=== PATIENT | female | born 1985 | race Caucasian/White ===

== ENCOUNTER 2020-08-30 08:50 | Outpatient (REF) | payer OTHER, SELFPAY | END 2020-08-30 08:51 | disposition home or self-care (01) | LOC: HO.LAB 08:50 | PROVIDERS: PCP Internal Medicine; Visit Provider Internal Medicine | DX: Z20.828 Contact with and (suspected) exposure to other viral communicable diseases (principal) | CPT/HCPCS: C9803; U0003 ==

== ENCOUNTER 2022-01-08 11:36 | Outpatient (REF) | payer BC, SELFPAY ==
[2022-01-08 12:31] LABS: COVID-19 Test Negative (Negative); IDNOW Serial# 16C4AD1C
== END 2022-01-08 11:37 | disposition home or self-care (01) ==
LOC: HO.LAB 11:36
PROVIDERS: Visit Provider Internal Medicine
DX: Z20.822 Contact with and (suspected) exposure to COVID-19 (principal)
CPT/HCPCS: 87635; C9803